=== PATIENT | male | born 1965 | race Caucasian/White ===

== ENCOUNTER 2016-03-23 03:44 | Emergency (ER) | payer SELFPAY ==
[~2016-03-23] VITALS: Ht 190.5 cm; Wt 93.5 kg
[2016-03-23 03:59] VITALS: Ht 190.5 cm; Wt 93.5 kg
[2016-03-23] MEDS ORDERED: SOD CHLORIDE 0.9% 1,000 ML IV STA (04:09)
[2016-03-23] MEDS ORDERED: morphine 4 MG/ML VIAL IV STA (04:09)
[2016-03-23] MEDS ORDERED: ONDANSETRON 4 MG INJ IV STA (04:09)
[2016-03-23] MEDS ORDERED: TAMS-14 PO (04:22)
[2016-03-23] MEDS ORDERED: IBUP800T25 PO (04:22)
[2016-03-23 04:39] LABS: BASOPHILS % 0.4 % (0.0-2.0); EOSINOPHILS # 0.3 10^3/ul (0.0-0.5); EOSINOPHILS % 4.9 % (0.0-7.0); HEMATOCRIT 45.5 % (42.0-52.0); HEMOGLOBIN 15.8 g/dl (14.0-18.0); LYMPHOCYTES # 2.5 10^3/ul (0.8-2.9); LYMPHOCYTES % 38.9 % (15.0-51.0); MEAN CORPUSCULAR HGB CONC 34.7 g/dl (32.0-37.0); MEAN CORPUSCULAR VOLUME 86.6 fl (82.0-101.0); MEAN PLATELET VOLUME 9.1 fl (7.4-10.4); MONOCYTE # 0.5 10^3/ul (0.3-0.9); NEUTROPHIL # 3.1 10^3/ul (1.6-7.5); NEUTROPHILS % 47.8 % (39.0-77.0); PLATELET COUNT 212 10^3/UL (140-440); RED BLOOD COUNT 5.25 10^6/ul (4.70-6.10); RED CELL DISTRIBUTION WIDTH 13.8 % (11.5-14.5); UNCORRECTED WBC 6.4 10^3/ul (4.8-10.8); WHITE BLOOD COUNT 6.4 10^3/ul (4.8-10.8)
[2016-03-23 04:41] LABS: CONDITION 1
[2016-03-23 04:45] LABS: ALBUMIN 4.4 g/dl (3.3-4.9)
[2016-03-23 04:46] LABS: POTASSIUM 3.7 mmol/L (3.5-5.1)
[2016-03-23 04:48] LABS: BILIRUBIN,INDIRECT 0.4 mg/dl (0-1.1); BILIRUBIN,TOTAL 0.4 mg/dl (0.2-1.3); CREATININE 0.86 mg/dl (0.61-1.24)
[2016-03-23 04:49] LABS: ALBUMIN/GLOBULIN RATIO 1.37; CALCIUM 9.6 mg/dl (8.4-10.2); TOTAL PROTEIN 7.6 g/dl (6.1-8.1)
--- NOTE | 2016-05-06 15:44 | ERD ---
ER Documentation Chief Complaint Date/Time DATE: 05/06/16 TIME: 15:43 Chief Complaint sudden onset left flank pain 1 hr ago, now radiates to front abd HPI Pleasant 77-year-old male reporting sudden onset left flank pain. Pain radiating into anterior abdomen. ROS All systems reviewed and are negative except as per history of present illness. Medications Home Meds Active Scripts Ibuprofen* (Motrin*) 800 Mg Tab, 800 MG PO Q6H Y for PAIN, #20 TAB Prov:JOHNNYPUSHPADIALLO Reina. 03/23/16 Tamsulosin Hcl* (Flomax*) 0.4 Mg Cap.er.24h, 0.4 MG PO QPM, #10 CAP Prov:DIALLO MADRIGAL S. 03/23/16 Allergies Allergies: Coded Allergies: No Known Drug Allergies (Verified Allergy, Unknown, 03/23/16) PMhx/Soc History of Surgery: No Anesthesia Reaction: No Hx Neurological Disorder: No Hx Respiratory Disorders: No Hx Cardiac Disorders: No Hx Psychiatric Problems: No Hx Miscellaneous Medical Probl: No Hx Alcohol Use: No Hx Substance Use: No Hx Tobacco Use: No Smoking Status: Never smoker Physical Exam Vitals Vitals stable, nursing notes reviewed Physical Exam Const: [] No acute distress Head: Atraumatic Eyes: Normal Conjunctiva ENT: Normal External Ears, Nose and Mouth. Neck: Full range of motion..~ No meningismus. Resp: Clear to auscultation bilaterally Cardio: Regular rate and rhythm, no murmurs Abd: abdomen soft, symmetrical, no Magallanes sign, McBurney's point negative. Generalized left lower quadrant tenderness. Left CVA tenderness. Skin: No petechiae or rashes Back: left flank tenderness Ext: No cyanosis, or edema Neur: Awake and alert Psych: Normal Mood and Affect Results 24 hrs Laboratory Tests Test 03/23/16 04:19 White Blood Count 6.410^3/ul Red Blood Count 5.2510^6/ul Hemoglobin 15.8g/dl Hematocrit 45.5% Mean Corpuscular Volume 86.6fl Mean Corpuscular Hemoglobin 30.0pg Mean Corpuscular Hemoglobin Concent 34.7g/dl Red Cell Distribution Width 13.8% Platelet Count 35781^3/UL Mean Platelet Volume 9.1fl Neutrophils % 47.8% Lymphocytes % 38.9% Monocytes % 8.0% Eosinophils % 4.9% Basophils % 0.4% Nucleated Red Blood Cells % 0.0/100WBC Neutrophils # 3.110^3/ul Lymphocytes # 2.510^3/ul Monocytes # 0.510^3/ul Eosinophils # 0.310^3/ul Basophils # 0.010^3/ul Nucleated Red Blood Cells # 0.010^3/ul Sodium Level 142mmol/L Potassium Level 3.7mmol/L Chloride Level 100mmol/L Carbon Dioxide Level 30mmol/L Anion Gap 16 Blood Urea Nitrogen 16mg/dl Creatinine 0.86mg/dl Glucose Level 121mg/dl Calcium Level 9.6mg/dl Total Bilirubin 0.4mg/dl Direct Bilirubin 0.00mg/dl Indirect Bilirubin 0.4mg/dl Aspartate Amino Transf (AST/SGOT) 28IU/L Alanine Aminotransferase (ALT/SGPT) 46IU/L Alkaline Phosphatase 76IU/L Total Protein 7.6g/dl Albumin 4.4g/dl Globulin 3.20g/dl Albumin/Globulin Ratio 1.37 Lipase 112U/L Current Medications Medications (Trade) Dose Ordered Sig/Sumeet Route PRN Reason Start Time Stop Time Status Last Admin Dose Admin Sodium Chloride (NS) 1,000 ml @ 1,000 mls/hr Q1H STAT IV 03/23/16 04:09 03/23/16 05:08 DC 03/23/16 04:21 Morphine Sulfate (morphine) 4 mg ONCE STAT IV 03/23/16 04:09 03/23/16 04:16 DC Ondansetron HCl (Zofran Inj) 4 mg ONCE STAT IV 03/23/16 04:09 03/23/16 04:16 DC Interpretation text CBC shows no evidence of hemorrhage or infection Chemistry shows no evidence of significant electrolyte abnormalities or renal insufficiency Liver function tests shows no evidence of acute biliary or hepatic dysfunction Lipase shows no evidence of acute pancreatitis Procedures/MDM Case discussed with patient moved to ER 1 Departure Condition: Stable Patient Instructions: Kidney Stone, Passed SANDRACHINYERE May 06, 2016 15:44 SANDRA,CHINYERE May 06, 2016 15:44
--- NOTE | 2016-05-10 21:59 | EN ---
Date/Time of Note Date/Time of Note DATE: 05/10/16 TIME: 21:59 ER Progress Note Patient transferred from ER to. Upon arrival patient had more pain medication and fluids. Patient pain resolved. At this point stable for outpatient management. Discharge home. DIALLO MADRIGAL May 10, 2016 21:59
== END 2016-03-23 04:31 | disposition home or self-care (01) ==
LOC: E/R 03:44
DX: R10.32 Left lower quadrant pain (principal)
CPT/HCPCS: 80053; 83690; 85025; J7030; 36415